=== PATIENT | female | born 1995 | race Caucasian/White ===

== ENCOUNTER 2016-11-02 14:20 | Emergency (ER) | payer MEDICAID, OTHER ==
[~2016-11-02] VITALS: Ht 175.3 cm; Wt 60.0 kg
[2016-11-02 14:21] VITALS: BP 126/78; PULSE 104; RESP 20; TEMP 98.6; O2SAT 98
[2016-11-02] MEDS ORDERED: SODIUM CHLOR 0.9% 1000 ML INJ 1,000 ML IV SCH (14:50)
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
[2016-11-02 15:43] LABS: AUTOMATED NEUTROPHIL # 4.7 TH/MM3 (1.8-7.7); BASOPHIL # 0.1 TH/MM3 (0-0.2); BASOPHIL % 0.8 % (0.0-2.0); EOSINOPHIL # 0.2 TH/MM3 (0-0.4); EOSINOPHIL % 1.9 % (0.0-4.0); HEMATOCRIT 44.3 % (35.0-46.0); HEMO FLAGS DIFF FINAL; LYMPH % 32.2 % (9.0-44.0); LYMPHOCYTE # 2.7 TH/MM3 (1.0-4.8); MEAN CELL VOLUME 86.4 FL (80.0-100.0); MEAN CORPUSCULAR HGB CONC 34.7 % (32.0-36.0); MONO % 9.3 % (0.0-8.0); NEUT % 55.8 % (16.0-70.0); PLATELET COUNT 239 TH/MM3 (150-450); RED BLOOD COUNT 5.12 MIL/MM3 (4.00-5.30); RED CELL DISTRIBUTION WIDTH 14.2 % (11.6-17.2); WHITE BLOOD COUNT 8.5 TH/MM3 (4.0-11.0)
--- NOTE | 2016-11-02 15:54 | RADRPT ---
EXAM DATE/TIME: 11/02/2016 15:42 [facility] COMPARISON: No previous studies available for comparison. INDICATIONS : Altered mental status. RADIATION DOSE: 56.35 CTDIvol (mGy) MEDICAL HISTORY : None SURGICAL HISTORY : None. ENCOUNTER: Initial ACUITY: 1 day PAIN SCALE: 0/10 LOCATION: cranial TECHNIQUE: Multiple contiguous axial images were obtained of the head. Using automated exposure control and adj ustment of the mA and/or kV according to patient size, radiation dose was kept as low as reasonably a chievable to obtain optimal diagnostic quality images. FINDINGS: CEREBRUM: The ventricles are normal for age. No evidence of midline shift, mass lesion, hemorrhage or acute in farction. No extra-axial fluid collections are seen. POSTERIOR FOSSA: The cerebellum and brainstem are intact. The 4th ventricle is midline. The cerebellopontine angle i s unremarkable. EXTRACRANIAL: Mild mucoperiosteal thickening of the ethmoid air cells. SKULL: The calvaria is intact. No evidence of skull fracture. CONCLUSION: No intracranial abnormality demonstrated. Mild sinus disease. Jimmy Hector MD on November 02, 2016 at 15:52 Board Certified Radiologist. This report was verified electronically.
[2016-11-02 16:03] LABS: AMPHETAMINE, URINE NEG (NEG); BACTERIA, URINE RARE /hpf; BARBITURATES, URINE NEG (NEG); BLOOD, URINE NEG (NEG); COCAINE, URINE NEG (NEG); COMMENT (UR) CULTURE INDICATED; CULTURE IF INDICATED CULTURE INDICATED; GLUCOSE,URINE NEG (NEG); KETONE, URINE NEG (NEG); MUCUS URINE FEW /lpf (OCC); NITRITE,URINE NEG (NEG); PH, URINE 5.5 (5.0-8.5); SQUAMOUS EPITHELIAL CELL URINE 3 /hpf (0-5); URINE COLOR YELLOW (YELLW/STRAW)
[2016-11-02 16:06] LABS: ANION GAP 6 MEQ/L (5-15)
[2016-11-02 16:09] LABS: ALKALINE PHOSPHATASE 64 U/L (45-117); ALT (GPT) 24 U/L (9-42); AST (GOT) 16 U/L (16-38); BLOOD UREA NITROGEN 7 MG/DL (7-18); CHLORIDE 105 MEQ/L (98-107); GLOMERULAR FILTRATION RATE 90 ML/MIN (>89); MAGNESIUM 2.3 MG/DL (1.5-2.5); POTASSIUM 4.1 MEQ/L (3.5-5.1); SODIUM (NA) 139 MEQ/L (136-145); TOTAL BILIRUBIN ADULT 0.5 MG/DL (0.2-1.0)
[2016-11-02 16:27] LABS: ACETAMINOPHEN LESS THAN 2.0 MCG/ML (10.0-30.0)
[2016-11-02] MEDS ORDERED: CEPH-460 PO (16:46)
[2016-11-02 17:59] VITALS: BP 110/77; TEMP 97.8
== END 2016-11-02 18:00 | disposition home or self-care (01) ==
LOC: NEPD 14:20
DX: Z04.41 Encounter for examination and observation following alleged adult rape (principal); N39.0 Urinary tract infection, site not specified; B96.20 Unspecified Escherichia coli [E. coli] as the cause of diseases classified elsewhere; F10.129 Alcohol abuse with intoxication, unspecified; F13.90 Sedative, hypnotic, or anxiolytic use, unspecified, uncomplicated; R41.82 Altered mental status, unspecified
CPT/HCPCS: 70450; 80053; 80307; 81001; 83735; 84703; 85025; 87077; 87086; 87186; 96360; 99285; J7030

== ENCOUNTER 2017-11-25 08:41 | Emergency (ER) | payer OTHER ==
[~2017-11-25] VITALS: Ht 175.3 cm; Wt 65.0 kg
[~2017-11-25 08:41] MED LIST: CEPH-460 PO
[2017-11-25 08:44] VITALS: BP 134/82; PULSE 101; RESP 16; TEMP 98.6; O2SAT 98
[2017-11-25] MEDS ORDERED: MUPIROCIN 2% OINT 22 GM TUBE TOPICAL ONE (09:15)
[2017-11-25] MEDS ORDERED: SULFAMETHOXAZOLE-TRIMETHOPRIM DS 800-160 MG TAB PO ONE (09:15)
[2017-11-25] MEDS ORDERED: CEPHALEXIN MONOHYDRATE 500 MG CAP PO ONE (09:15)
[2017-11-25] MEDS ORDERED: CEPH-460 PO (09:37)
[2017-11-25] MEDS ORDERED: BACT800T5 PO (09:37)
[2017-11-25] MEDS ORDERED: MUPI2OIN TOPICAL (09:37)
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
== END 2017-11-25 09:51 | disposition home or self-care (01) ==
LOC: NEPD 08:41
DX: S21.201A Unspecified open wound of right back wall of thorax without penetration into thoracic cavity, initial encounter (principal); R00.0 Tachycardia, unspecified; B95.62 Methicillin resistant Staphylococcus aureus infection as the cause of diseases classified elsewhere; X58.XXXA Exposure to other specified factors, initial encounter
CPT/HCPCS: 86403; 87070; 87186; 99283